=== PATIENT | female | born 1970 | race Caucasian/White ===

== ENCOUNTER 2022-05-23 06:17 | Day surgery (SDC) | payer BC ==
[2022-05-23] MEDS ORDERED: Ringers Lactate 1,000 ML IV ONE (06:29)
[2022-05-23] MEDS ORDERED: CEFAZOLIN SODIUM 1 GM/VIAL ONE (06:29)
[2022-05-23] MEDS ORDERED: CEFAZOLIN 3 GM in NA CHLORIDE 0.9% 100 ML IVPB SCH (07:00)
[2022-05-23] MEDS ORDERED: MIDAZOLAM HCL 2 MG/2 ML INJ ONE (07:09)
[2022-05-23] MEDS ORDERED: FENTANYL CITR 100 MCG/2 ML ONE (07:09)
[2022-05-23] MEDS ORDERED: propofoL 200 MG/20 ML VIAL IV ONE (07:09)
[2022-05-23] MEDS ORDERED: LIDOCAINE 2% MPF 5 ML VIAL ONE (07:14)
[2022-05-23] MEDS ORDERED: ROCURONIUM 50 MG/5 ML VIAL IV ONE (07:14)
[2022-05-23] MEDS ORDERED: ONDANSETRON 4 MG/2 ML VIAL ONE ×2 (07:14→09:36)
[2022-05-23] MEDS ORDERED: GLYCOPYRROLATE 0.2 MG/ML SYR ONE (07:17)
[2022-05-23] MEDS ORDERED: NEOSTIGMINE 1 MG/ML -10 ML VIAL ONE (07:17)
[2022-05-23] MEDS ORDERED: BUPIVACAINE 0.25% PF 10 ML VIAL ONE (07:23)
[2022-05-23] MEDS: CEFAZOLIN SODIUM 2 GM/VIAL ONE ×2 (07:36→07:43)
[2022-05-23] MEDS: BUPIVACAINE 0.25% PF 30 ML VIAL ONE ×2 (07:43→08:00)
[2022-05-23] MEDS ORDERED: IBUPROFEN 200 MG TAB PO PRN ×2 (07:54→07:55)
[2022-05-23] MEDS ORDERED: dexAMETHasone 4 MG/ML VIAL ONE (08:31)
[2022-05-23] MEDS: HYDROMORPHONE HCL 1 MG/ML INJ ONE ×2 (09:32→09:42)
--- NOTE | 2022-05-23 09:58 | P.BOP ---
Preoperative diagnosis: mixed incontinence, fecal incontinence Postoperative diagnosis: same Primary procedure: Incision/Implantation of quadripolar tined lead electrodes into [id number] Secondary procedure: Rt buttock pocket, using flouroscopic giudance for needle placement Estimated blood loss: min Specimen: none Findings: Rt S3,response much better on Rt>>Lt, Lead0:mild, 1,2,3:strong Toe/Smitha Anesthesia: General Complications: None Implants: Quad tined lead electrode and percutaneous extension Transferred to: Recovery Room Condition: Good
[2022-05-23 10:19] VITALS: BP 117/58; TEMP 96.9; O2SAT 95
[2022-05-23] MEDS ORDERED: IBUPROFEN 400 MG TAB ONE (10:29)
[2022-05-23] MEDS ORDERED: IBUPROFEN 200 MG TAB PO ONE (10:29)
--- NOTE | 2022-05-23 12:11 | RAD REPORT ---
EXAM DESCRIPTION: RAD - Fluoroscopy <1 Hour - 05/23/2022 12:00 pm CLINICAL HISTORY: Sacral neural modulation FINDINGS: Ten fluoroscopic spot images obtained. Fluoroscopy time 0.5 minutes Sacral neural modulation performed The examination was performed by
[2022-05-24] MEDS ORDERED: HOME MED 1 EA UNK (Estradiol [Estrace] 42.5 GM Cream.Appl) VG SCH (17:00)
== END 2022-05-23 11:12 | disposition home or self-care (01) ==
LOC: OR 06:17
PROVIDERS: ATTEND Obstetrics & Gynecology
PROC: 01HY3MZ Insertion of Neurostimulator Lead into Peripheral Nerve, Percutaneous Approach (ICD-10-PCS; principal; 2022-05-23 07:30)
DX: N39.46 Mixed incontinence (principal); R15.9 Full incontinence of feces
CPT/HCPCS: 76000; J0690; J1100; J1170; J2001; J2250; J2405; J2704; J2710; J3010; J7120

== ENCOUNTER 2022-05-30 06:17 | Day surgery (SDC) | payer BC ==
[2022-05-30] MEDS: Ringers Lactate 1,000 ML IV ONE ×3 (06:55→07:35)
[2022-05-30] MEDS: CEFAZOLIN 3 GM in NA CHLORIDE 0.9% 100 ML IVPB SCH ×2 (07:08→07:40)
[2022-05-30] MEDS: LIDOCAINE 1% W/EPI 1:100,000 30 ML VIAL ONE ×2 (07:09→07:53)
[2022-05-30] MEDS ORDERED: FENTANYL CITR 100 MCG/2 ML ONE (07:16)
[2022-05-30] MEDS ORDERED: propofoL 200 MG/20 ML VIAL IV ONE ×2 (07:16→08:10)
[2022-05-30] MEDS ORDERED: MIDAZOLAM HCL 2 MG/2 ML INJ ONE (07:17)
[2022-05-30] MEDS ORDERED: LIDOCAINE 2% MPF 5 ML VIAL ONE (07:21)
[2022-05-30] MEDS ORDERED: CEFAZOLIN SODIUM 1 GM/VIAL ONE ×2 (08:04→08:06)
[2022-05-30] MEDS ORDERED: Mastisol Adhesive Liq ONE (08:31)
[2022-05-30] MEDS ORDERED: IBUPROFEN 200 MG TAB PO PRN (08:34)
--- NOTE | 2022-05-30 08:41 | P.BOP ---
Preoperative diagnosis: Urge incontinence refractory OAB Postoperative diagnosis: same Primary procedure: Stage 2 Interstim (Implantation of sacral neurostimulator+programming) Secondary procedure: Rt Buttock Estimated blood loss: min Specimen: none Findings: pocket w/ small hematoma+dark bloody discharge,abx pocket used, paired Anesthesia: MAC Complications: None Implants: Interstim II sacral neurostimulator Transferred to: Recovery Room Condition: Good
[2022-05-30] MEDS ORDERED: IBUPROFEN 400 MG TAB ONE (09:03)
[2022-05-30 09:29] VITALS: BP 119/63; TEMP 98.1; O2SAT 100
[2022-05-31] MEDS ORDERED: HOME MED 1 EA UNK (Estradiol [Estrace] 42.5 GM Cream.Appl) VG SCH (17:00)
== END 2022-05-30 09:26 | disposition home or self-care (01) ==
LOC: OR 06:17
PROVIDERS: ATTEND Obstetrics & Gynecology
PROC: 0JH73BZ Insertion of Single Array Stimulator Generator into Back Subcutaneous Tissue and Fascia, Percutaneous Approach (ICD-10-PCS; principal; 2022-05-30 07:30)
DX: N39.41 Urge incontinence (principal); N32.81 Overactive bladder
CPT/HCPCS: 64590; J2704 ×2; J2001; J2250; J3010; J7120; J0690 ×2

== ENCOUNTER 2022-10-17 11:10 | Day surgery (SDC) | payer BC ==
[2022-10-16 15:02] LABS: Specific Gravity 1.017 (1.005-1.030)
[2022-10-16 15:03] LABS: Specific Gravity 1.017 (1.005-1.030); Urine Bilirubin NEGATIVE (Negative); Urine Blood Negative (Negative); Urine Clarity Clear (Clear); Urine Color Light-Yellow (Yellow); Urine Glucose NEGATIVE (Negative); Urine Protein NEGATIVE (Negative); Urine Urobilinogen Normal (Normal)
[2022-10-16 15:05] LABS: Absolute Lymphocytes (CBC) 2.1 K/uL (0.7-4.9); Hematocrit 37.8 % (36.0-45.0); Lymphocytes % 29.4 % (15.3-44.8); MCV 84.1 fL (80-100); Platelets 240 thou/uL (152-406); RBC Red Blood Cell Count 4.49 M/uL (3.86-4.86)
[2022-10-16 15:17] LABS: Potassium 3.7 mEq/L (3.5-5.1)
[2022-10-17] MEDS ORDERED: Ringers Lactate 1,000 ML IV ONE ×2 (12:03→16:05)
[2022-10-17] MEDS ORDERED: CEFAZOLIN SODIUM 1 GM/VIAL ONE ×2 (12:03→14:28)
[2022-10-17] MEDS ORDERED: CEFAZOLIN SODIUM 2 GM/VIAL ONE (12:03)
[2022-10-17] MEDS ORDERED: IBUPROFEN 200 MG TAB PO PRN (14:15)
[2022-10-17] MEDS ORDERED: PROMETHAZINE 25 MG TABLET PO PRN (14:15)
[2022-10-17] MEDS ORDERED: MEPERIDINE HCL 25 MG/ML SYR IM PRN (14:15)
--- NOTE | 2022-10-17 14:19 | P.BOP ---
Preoperative diagnosis: stress urinary incontinence Postoperative diagnosis: same Primary procedure: transobturator single incision midurethral sling, cysto Production Officer: Keyonna Wynne PA-C Estimated blood loss: 50ml Specimen: none Findings: urethral hypermobility Anesthesia: General Complications: None Drain(s): Urinary catheter Implants: Solyx Transferred to: Recovery Room Condition: Good
[2022-10-17] MEDS ORDERED: VASOPRESSIN 20 UNIT/ML VIAL ONE (14:27)
[2022-10-17] MEDS ORDERED: NS 0.9% VIAL 10 ML ONE ×2 (14:28→15:20)
[2022-10-17] MEDS ORDERED: NA CHLORIDE 0.9% 50 ML ONE (14:29)
[2022-10-17] MEDS ORDERED: NA CHLORIDE 0.9% 1,000 ML ONE (14:29)
[2022-10-17] MEDS ORDERED: FENTANYL CITR 100 MCG/2 ML ONE (14:36)
[2022-10-17] MEDS ORDERED: propofoL 200 MG/20 ML VIAL IV ONE (14:36)
[2022-10-17] MEDS ORDERED: MIDAZOLAM HCL 2 MG/2 ML INJ ONE (14:36)
[2022-10-17] MEDS ORDERED: LIDOCAINE 2% MPF 5 ML VIAL ONE (14:36)
[2022-10-17] MEDS ORDERED: KETAMINE HCL IN 0.9 % NACL 50 MG/5 ML SYRINGE IV ONE (14:39)
[2022-10-17] MEDS ORDERED: ONDANSETRON 4 MG/2 ML VIAL ONE (14:44)
[2022-10-17] MEDS ORDERED: GLYCOPYRROLATE 0.2 MG/ML SYR ONE (14:44)
[2022-10-17] MEDS ORDERED: dexAMETHasone 10 MG/ML VIAL ONE (14:44)
[2022-10-17] MEDS ORDERED: METOCLOPRAMIDE 10 MG/2mL INJ ONE (15:00)
[2022-10-17 17:39] VITALS: BP 134/84; O2SAT 100
[2022-10-17 17:41] VITALS: TEMP 97.7
--- NOTE | 2022-10-18 05:36 | OP ---
Date of Procedure: 10/17/2022 Surgeon: Aneta Patino MD Medical Billing And Coding Specialist: Keyonna Wynne. Preoperative Diagnoses: Mixed incontinence. The patient here today for stress urinary incontinence. Postoperative Diagnoses: Mixed incontinence. The patient here today for stress urinary incontinence and rectocele stage II. Procedures Performed: Transobturator single incision mid-urethral sling (Solyx), cystoscopy. Anesthesia: General. Specimens: No specimens. Complications: No complications. Drains: Quintanilla catheter and vaginal packing. Condition: The patient's condition, stable. Findings: Anterior wall prolapse was very minimal. Her anterior wall POP-Q -3, -3, -8, 4.5, moderat e, 8, -1, 0, NA. Rectocele noted and perineal body defect as well. After the sling, cystoscopy with a 0- and 30-degree lens was performed. No evidence of any trauma to the urethra or the bladder. An atomy unremarkable. Brief History And Physical: The patient is a 52-year-old known patient to the practice, presented wi mixed incontinence, initially overactive bladder was her most significant complaint. After e pathway, she underwent an InterStim placement and she is significantly improved from her overactive bladder symptoms, however, stress urinary incontinence has been significant causing her symptoms, so we discussed about urethral bulking and/or mid-urethral sling and the sling placement would be condi tional on her anterior wall prolapse. If this was significant and there is a potential that mid-uret hral sling without repair would cause potentially obstruction to waiting, then urethral bulking alone would be performed. She understood this and was consented. If there is no anterior wall prolapse, she understood that I will place a mid-urethral sling and bulking or sling alone. Description Of Procedure: After she was consented, she was taken back to the OR, placed in supine fa shion on the operating table. 3 g of Ancef were given. SCDs were placed. A time-out was done and p rocedure was started. Once a time-out was done, the vulva, vagina, and perineum were prepped and draped in a sterile fashio n, prepping with the Betadine. Quintanilla was placed to drain the bladder. POP-Q as above. Mid-urethral area was picked up with 2 Allis clamps, injected with dilute vasopressin 15 mL in the midline as well as on both sides. A 1.5 cm in cision was made in the midline down through the fascia and underneath the fascia, tunnels were create d towards the ipsilateral obturator space under the inferior pubic ramus. Without perforating the ob turator membrane, the tract was expanded on each side. The area in the midline was sufficiently diss ected to accommodate the sling in a very appropriate fashion without folding. A Solyx sling was taken. The sling was marked in the center with a 3-0 Vicryl suture loosely. Then, the sling was loaded onto the needle. The needle entry was in the same angle as the dissection of t he tract. Once the tip of the needle was passed underneath the inferior pubic ramus, the handle was dropped laterally to the opposite thigh and turning at a 45-degree angle, the hook was advanced into the obturator fascia. Once this was placed sufficiently keeping in mind that the suture that was herbert tral remained central, there was adequate tug on this that ensured a secure anchoring into the obtura tor fascia. The needle was undeployed in the usual fashion and removed from the tract. A similar deployment was performed on the opposite side, however, before the needle was undeployed, t he mid-urethral area was well visualized with suctioning and antibiotic solution irrigation that the sling was sufficiently apposed and flat in the mid-urethral area against the urethra. Once this was secured and tensioned appropriately and satisfactorily, the anchor was deployed into the obturator fa scia and the needle retrieved. On examining the fornices, no evidence of any perforation or extrusio n of the sling. The vaginal epithelium and fascia were closed with the help of continuous running 3- 0 Vicryl suture after irrigation and suction and there was excellent hemostasis. Vaginal packing was placed and Quintanilla was removed. Cystoscopy was performed with a 30-degree lens. Both ureteric orific es were well visualized. The area above the trigone, trigone, dome of the bladder, and sidewalls wer e all completely unremarkable without evidence of any perforation or trauma to the bladder. Then, 0- degree scope was used to visualize the urethra and there was no evidence of any trauma here. There w as no evidence of any significant dilation of the internal meatus that required urethral bulking. So , the scope was removed. Quintanilla was replaced. Instrument, needle, and sponge counts were correct at the end of the case. She was recovered from anesthesia and taken to PACU in stable condition. For a voiding trial in 1 hour after the procedure, 300 mL of retrograde fill. The Quintanilla was removed and v aginal packing was removed as well. After the patient voided, the PVR was 25 mL. She voided 275 and the patient was comfortable and she was discharged home with instructions to void regularly and foll ow up in 1 week for her voiding trial and a postop appointment. EBL was 50 mL. JON/JEREMY Voice ID: [id number] Report ID: [id number]
== END 2022-10-17 17:40 | disposition home or self-care (01) ==
LOC: OR 11:10
PROVIDERS: ADMIT Physician Assistant; ATTEND Obstetrics & Gynecology
PROC: 0TSD0ZZ Reposition Urethra, Open Approach (ICD-10-PCS; principal; 2022-10-17 12:30)
DX: N39.46 Mixed incontinence (principal)
CPT/HCPCS: 85025; 80048; 36415; 86900; 86850; 81025; 85610; 86901; 85730; 81003; 57288; A4216 ×2; J2704; J2765; J2001; J2250; J3010; J1100; J2405; J7120 ×2; J7030; J0690 ×2